=== PATIENT | female | born 1930 | race Caucasian/White ===

== ENCOUNTER → 2016-11-21 | Outpatient (CLI) | payer MEDICARE, BC ==
[2016-11-21 18:29] LABS: BASO % 0.3 % (0.0-1.0); EOS # 0.2 K/mm3 (0.0-0.50); EOS % 2.2 % (0.0-3.0); LARGE UNSTAINED CELL # 0.1 K/mm3 (0.0-0.4); LARGE UNSTAINED CELL % 1.3 % (0.0-4.0); LYMPH # 4.2 K/mm3 (1.5-4.5); LYMPH % 40.4 % (24.0-44.0); MEAN CORPUSCULAR HEMOGLOBIN 32.4 pg (27.0-33.0); MEAN CORPUSCULAR HGB CONC 33.1 g/dl (32.0-36.5); MEAN CORPUSCULAR VOLUME 97.9 fl (80.0-96.0); MONO # 0.4 K/mm3 (0.0-0.8); MONO % 4.3 % (0.0-5.0); NEUTROPHILS # 5.2 K/mm3 (1.8-7.7); NEUTROPHILS % 51.5 % (36.0-66.0); PLATELET COUNT, AUTOMATED 222 k/mm3 (150-450); RED CELL DISTRIBUTION WIDTH 12.4 % (11.5-14.5)
[2016-11-21 18:31] LABS: ALBUMIN 3.5 GM/DL (3.2-5.2); ALKALINE PHOSPHATASE 151 U/L (45-117); ALT/SGPT 52 U/L (12-78); ANION GAP 12 MEQ/L (8-16); AST/SGOT 53 U/L (15-37); BLOOD UREA NITROGEN 25 MG/DL (7-18); CALCIUM LEVEL 9.2 MG/DL (8.8-10.2); CARBON DIOXIDE LEVEL 28 MEQ/L (21-32); CHLORIDE LEVEL 102 MEQ/L (98-107); CHOLESTEROL LEVEL 199 MG/DL (<200); CREATININE FOR GFR 1.18 MG/DL (0.55-1.02); GLOMERULAR FILTRATION RATE 46.3 (>32); GLUCOSE, FASTING 279 MG/DL (83-110); POTASSIUM SERUM 4.6 MEQ/L (3.5-5.1); SODIUM LEVEL 142 MEQ/L (136-145); TRIGLYCERIDES LEVEL 291 MG/DL (<150)
[2016-11-21 18:35] LABS: BILIRUBIN,TOTAL 0.3 MG/DL (0.2-1.0)
== END ==
LOC: M SMT 11:42
PROVIDERS: ATTEND Family Medicine
DX: E11.42 Type 2 diabetes mellitus with diabetic polyneuropathy (principal); E07.89 Other specified disorders of thyroid

== ENCOUNTER 2016-12-20 12:46 | Emergency (ER) | payer MEDICARE, BC ==
[~2016-12-20] VITALS: Ht 160 cm; Wt 86.2 kg
[2016-12-20] MEDS ORDERED: NORC1TAB4 PO (13:11)
[2016-12-20] MEDS ORDERED: [UNRECOGNIZED DRUG - REMARK] (13:11)
[2016-12-20] MEDS ORDERED: GLIM2TAB PO (13:11)
[2016-12-20] MEDS ORDERED: OXYC-299 (13:11)
[2016-12-20] MEDS ORDERED: LORA2CON5 PO (13:11)
[2016-12-20] MEDS ORDERED: ASPI81TA85 PO (13:11)
[2016-12-20] MEDS ORDERED: XOPEAER INH (13:11)
[2016-12-20] MEDS ORDERED: DILT12SRCA PO (13:11)
[2016-12-20] MEDS ORDERED: LOSA50TA20 PO (13:11)
[2016-12-20] MEDS ORDERED: BIMA01SOL OU (13:11)
[2016-12-20] MEDS ORDERED: POTA10CA PO (13:11)
[2016-12-20] MEDS ORDERED: BETO0.25 OU (13:11)
[2016-12-20] MEDS ORDERED: JANU100T14 PO (13:11)
[2016-12-20] MEDS ORDERED: HYDR12.55 PO (13:11)
--- NOTE | 2016-12-20 14:06 | REP ---
PORTABLE CHEST: AP portable view of the chest was performed. There is no acute infiltrate or pulmonary edema. There is cardiomegaly. There is mild calcification and tortuosity of the thoracic aorta. Mediastinal silhouette otherwise appears unremarkable. There is mild elevation of the right hemidiaphragm. There are degenerative changes of the spine. There are degenerative changes of the shoulder with multiple calcific bodies along the humeral head. IMPRESSION: Cardiomegaly. No evidence of acute infiltrate or pulmonary edema. Signed by Michael Nash MD 12/20/2016 05:39 P
[2016-12-20 14:16] LABS: BASO % 0.5 % (0.0-1.0); EOS # 0.2 K/mm3 (0.0-0.50); EOS % 1.9 % (0.0-3.0); LARGE UNSTAINED CELL # 0.2 K/mm3 (0.0-0.4); LARGE UNSTAINED CELL % 1.7 % (0.0-4.0); LYMPH # 3.1 K/mm3 (1.5-4.5); LYMPH % 33.7 % (24.0-44.0); MEAN CORPUSCULAR HEMOGLOBIN 31.9 pg (27.0-33.0); MEAN CORPUSCULAR HGB CONC 32.8 g/dl (32.0-36.5); MEAN CORPUSCULAR VOLUME 97.3 fl (80.0-96.0); MONO # 0.3 K/mm3 (0.0-0.8); MONO % 3.7 % (0.0-5.0); NEUTROPHILS # 5.1 K/mm3 (1.8-7.7); NEUTROPHILS % 58.6 % (36.0-66.0); PLATELET COUNT, AUTOMATED 192 k/mm3 (150-450); RED CELL DISTRIBUTION WIDTH 12.6 % (11.5-14.5); WHITE BLOOD COUNT 8.7 K/mm3 (4.0-10.0)
[2016-12-20 15:09] LABS: ALBUMIN 3.1 GM/DL (3.2-5.2); ALBUMIN/GLOBULIN RATIO 0.82 (1.00-1.93); ALKALINE PHOSPHATASE 126 U/L (45-117); ALT/SGPT 49 U/L (12-78); ANION GAP 9 MEQ/L (8-16); AST/SGOT 46 U/L (15-37); BILIRUBIN,DIRECT < 0.1 MG/DL (0.0-0.2); BILIRUBIN,TOTAL 0.3 MG/DL (0.2-1.0); BLOOD UREA NITROGEN 21 MG/DL (7-18); CALCIUM LEVEL 9.3 MG/DL (8.8-10.2); CARBON DIOXIDE LEVEL 26 MEQ/L (21-32); CHLORIDE LEVEL 105 MEQ/L (98-107); CREATININE FOR GFR 1.04 MG/DL (0.55-1.02); GLOMERULAR FILTRATION RATE 53.6 (>32); GLUCOSE, FASTING 267 MG/DL (83-110); POTASSIUM SERUM 3.8 MEQ/L (3.5-5.1); SODIUM LEVEL 140 MEQ/L (136-145); TOTAL PROTEIN 6.9 GM/DL (6.4-8.2)
[2016-12-20] MEDS: cloNIDine 0.1 MG TAB PO ONE (16:28)
[2016-12-20] MEDS ORDERED: HYDR-3716 PO (17:06)
[2016-12-20] MEDS ORDERED: LORA-376 PO (17:06)
[2016-12-20] MEDS ORDERED: INSULANT SC (17:08)
[2016-12-20] MEDS ORDERED: PROB1CHW7 PO (17:08)
[2016-12-20] MEDS ORDERED: DULC5TAB PO (17:08)
[2016-12-20] MEDS ORDERED: COLA100C3 PO (17:08)
[2016-12-20] MEDS ORDERED: LOTE0.5S OU (17:08)
[2016-12-20] MEDS ORDERED: JANU100T PO (17:09)
[2016-12-20] MEDS: NORCO, ANEXSIA 5/325MG TABLET (HYDROcodone/ACETAMINOPHEN) PO ONE (17:48)
[2016-12-20] MEDS ORDERED: CLON-412 PO (18:52)
[2016-12-20 19:25] VITALS: BP 150/67
--- NOTE | 2016-12-22 20:39 | ECGEPIP ---
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
== END 2016-12-20 19:26 | disposition home or self-care (01) ==
LOC: M ED 16:11
DX: I16.0 Hypertensive urgency (principal); I25.10 Atherosclerotic heart disease of native coronary artery without angina pectoris; E11.9 Type 2 diabetes mellitus without complications; E78.5 Hyperlipidemia, unspecified; G47.33 Obstructive sleep apnea (adult) (pediatric); Z87.891 Personal history of nicotine dependence; Z88.0 Allergy status to penicillin; Z88.2 Allergy status to sulfonamides; Z88.1 Allergy status to other antibiotic agents; Z79.899 Other long term (current) drug therapy; Z79.82 Long term (current) use of aspirin; Z79.4 Long term (current) use of insulin; R06.02 Shortness of breath

== ENCOUNTER 2017-06-16 18:14 | Inpatient (IN) | payer MEDICARE, BC ==
[~2017-06-16] VITALS: Ht 154.9 cm; Wt 80.7 kg
[~2017-06-16 18:14] MED LIST: ASPI81TA85 PO; BETO0.25 OU; BIMA01SOL OU; CLON-412 PO; COLA100C5 PO; DILT12SRCA PO; DULC5TAB PO; GLIM2TAB PO; HYDR-3716 PO; HYDR12.55 PO; INSULANT SC; JANU100T PO; JANU100T14 PO; LEVAINH INH; LORA0.5T11 PO; LORA2CON5 PO; LOSA50TA20 PO; LOTE0.5S OU; NORC1TAB4 PO; OXYC-141; POTA10CA PO; PROB1CHW7 PO; [UNRECOGNIZED DRUG - REMARK]
[2017-06-16] MEDS ORDERED: ONDANSETRON 4MG/2ML VIAL (J2405) IV ONE (20:00)
[2017-06-16] MEDS ORDERED: MORPHINE 2 MG/ML 1ML SYRINGE IV PRN (20:00)
[2017-06-16 20:19] LABS: BASO # 0.1 10^3/uL (0.0-0.2); BASO % 0.5 % (0.0-1.0); EOS # 0.2 10^3/uL (0.0-0.50); EOS % 2.2 % (0.0-3.0); IMMATURE GRANULOCYTE % 0.2 % (0-0); LYMPH # 4.2 10^3/uL (1.5-4.5); LYMPH % 41.1 % (24.0-44.0); MEAN CORPUSCULAR HEMOGLOBIN 32.4 pg (27.0-33.0); MEAN CORPUSCULAR HGB CONC 33.3 g/dl (32.0-36.5); MEAN CORPUSCULAR VOLUME 97.2 fl (80.0-96.0); MONO # 0.7 10^3/uL (0.0-0.8); MONO % 6.4 % (0.0-5.0); NEUTROPHILS # 5.1 10^3/uL (1.8-7.7); NEUTROPHILS % 49.6 % (36.0-66.0); PLATELET COUNT, AUTOMATED 215 10^3/uL (150-450); RED CELL DISTRIBUTION WIDTH 12.5 % (11.5-14.5); WHITE BLOOD COUNT 10.2 10^3/uL (4.0-10.0)
[2017-06-16 20:52] LABS: ALBUMIN 3.1 GM/DL (3.2-5.2); ALBUMIN/GLOBULIN RATIO 0.86 (1.00-1.93); ALKALINE PHOSPHATASE 111 U/L (45-117); ALT/SGPT 48 U/L (12-78); ANION GAP 7 MEQ/L (8-16); AST/SGOT 43 U/L (15-37); BILIRUBIN,DIRECT < 0.1 MG/DL (0.0-0.2); BILIRUBIN,TOTAL 0.2 MG/DL (0.2-1.0); BLOOD UREA NITROGEN 24 MG/DL (7-18); CALCIUM LEVEL 9.1 MG/DL (8.8-10.2); CARBON DIOXIDE LEVEL 29 MEQ/L (21-32); CHLORIDE LEVEL 104 MEQ/L (98-107); CREATININE FOR GFR 1.23 MG/DL (0.55-1.02); GLOMERULAR FILTRATION RATE 44.2 (>32); GLUCOSE, FASTING 269 MG/DL (83-110); POTASSIUM SERUM 3.8 MEQ/L (3.5-5.1); SODIUM LEVEL 140 MEQ/L (136-145); TOTAL PROTEIN 6.7 GM/DL (6.4-8.2)
[2017-06-16] MEDS: LEVEMIR (INSULIN DETEMIR) 1 UNITS/0.01ML SC SCH (21:00)
[2017-06-16] MEDS: HumaLOG INSULIN (NovoLOG) PER UNIT SC SCH (21:00)
--- NOTE | 2017-06-16 21:10 | REPUSA ---
CT of the cervical spine Clinical history: Pain. Technique: Multiple axial CT images were obtained through the cervical spine without administration o f contrast. Coronal and sagittal 3-D reconstructed images were also obtained. Comparison: None. Findings: The cervical vertebral bodies are in satisfactory positioning and alignment. No fractures or dislocat ions are demonstrated. Large anterior osteophytes are seen at C5 and C6. The odontoid process is inta ct. Intervertebral disc spaces are moderately narrowed at all levels. This is most severe at C3/C4. F acet arthropathy with sclerosis and osteophytic changes are seen bilaterally. There is no evidence of facet subluxation. The cervical cranial junction is intact. The surrounding soft tissues are within normal limits. Impression: 1. No acute fracture or traumatic injury. 2. Moderate cervical spondylosis with multilevel degenerative disc disease and facet arthropathy as d escribed.
--- NOTE | 2017-06-16 21:30 | REPUSA ---
CT of the chest without contrast Clinical statement: Fall. Technique: Multiple axial CT images were obtained with 5 mm cuts through the chest without administra tion of contrast. Coronal and sagittal reconstructions were also obtained. No comparison is available. Findings: There is no thoracic lymphadenopathy. The visualized portions of the thyroid gland is unrem arkable. There are no pericardial or pleural effusions. The lungs are clear, other than some benign c alcified granulomas. Limited imaging of the upper abdomen does not demonstrate any acute abnormalitie s. There are no suspicious osseous lesions. Impression: No acute traumatic injury. No acute intrapulmonary disease.
--- NOTE | 2017-06-16 21:30 | REPUSA ---
CT of the head Clinical history: fall. Protocol: Multiple axial CT images obtained with 5 mm slice thickness were obtained through the head without administration of contrast. Findings: The ventricles and sulci are symmetric but prominent in size bilaterally. There are periven tricular areas of low attenuation throughout the deep white matter. There is no evidence of acute hem orrhage or infarct. There is no midline shift, mass effect, or extra-axial fluid collection. The osse ous structures are unremarkable. The visualized paranasal sinuses and mastoid air cells are clear. Impression: No acute hemorrhage or infarct. Findings are consistent with moderately severe age-relate d atrophy and chronic small vessel ischemic disease.
[2017-06-16] MEDS ORDERED: cloNIDine 0.1 MG TAB PO ONE (21:45)
[2017-06-16] MEDS ORDERED: hydrALAZINE INJ 20 MG/ML VIAL IV ONE (22:30)
[2017-06-16] MEDS ORDERED: CLON-412 PO (23:08)
[2017-06-16] MEDS ORDERED: LORA1TAB12 PO (23:08)
[2017-06-16] MEDS ORDERED: DULO1CAP2 PO (23:08)
[2017-06-16] MEDS ORDERED: BISACODYL 5 MG TAB PO PRN (23:15)
[2017-06-16] MEDS ORDERED: GLUCOSE 4 GM CHEW TABLET PO PRN (23:45)
[2017-06-16] MEDS ORDERED: DEXTROSE 50% 50 ML SYRINGE IV PRN (23:45)
[2017-06-16] MEDS ORDERED: GLUCAGON FOR INJ 1 MG VIAL (J1610) SC PRN (23:45)
[2017-06-17] VITALS (10 sets, daily range): BP systolic 141–190; BP diastolic 69–88; O2SAT 95–96
[2017-06-17] MEDS: ANEXSIA, NORCO 7.5MG/325MG TABLET(HYDROCODONE/APAP) PO PRN ×2 (00:19→22:03)
[2017-06-17 00:52] LABS: T UPTAKE 33 % (30-39); THYROXINE (T4) 10.3 UG/DL (4.5-12.0)
[2017-06-17] MEDS ORDERED: LEVALBUTEROL HFA 45MCG/ACT 15 GM INHALER INH PRN (01:00)
[2017-06-17] MEDS: SENOKOT S TAB PO SCH ×3 (02:31→21:59)
[2017-06-17 02:54] LABS: MAGNESIUM LEVEL 1.8 MG/DL (1.8-2.4)
[2017-06-17] MEDS ORDERED: ONDANSETRON 4MG/2ML VIAL (J2405) IV ONE (03:00)
--- NOTE | 2017-06-17 05:23 | HPE ---
DATE OF ADMISSION: 06/16/2017 PRIMARY CARE PROVIDER: Dr. Leone. CHIEF COMPLAINT: Fall. HISTORY OF PRESENT ILLNESS: This is an 86-year-old female patient with underlying medical history of diabetes, hypertension, asthma, cornea transplant, visual limitation, peripheral neuropathy, anxiety, frequent falls, chronic back pain, admitted status post fall around 6 p.m., when patient lost balance in the house getting from chair. Baseline ambulating with a cane or walker, but poorly compliant with using cane. Lives at home with . Has been falling multiple times, more than 15 times over the past month. After the fall, the patient reported some headache, neck pain, back pain, that is worse than before. Denies any chest pain, pressure, discomfort. Denies any loss of consciousness or shortness of breath. Has a history of ankle fracture with rods that, as per patient, has not healed due to lack of bone growth. Denies any fevers at home, coughing, diarrhea. Reported constipation. In the emergency department (ED), the patient was found to be hypertensive with a blood pressure in the 250s. ALLERGIES: 1. CEPHALOSPORIN. 2. PENICILLIN, PENICILLIN CROSS REACTORS. 3. SULFA, SULFA CROSS REACTORS. PAST MEDICAL HISTORY: 1. Hypertension. 2. Asthma. 3. Diabetes type 2. 4. Chronic back pain. PAST SURGICAL HISTORY: 1. History of corneal transplant. 2. Multiple sections up to eight sections. 3. Bilateral hip replacement. 4. Back surgery, cervical C3-C4 surgery. 5. Ankle surgery right ankle. SOCIAL HISTORY: Lives at home with , with daughter living close by. Denies smoking or alcohol use. FAMILY HISTORY: Noncontributory. REVIEW OF SYSTEMS: Reported frequent falls with generalized weakness, unsteadiness. Reported back pain, neck pain, headache. All other review of systems negative. HOME MEDICATIONS: - [place] 7.5/325 mg by mouth every eight hours as needed - Lumigan eye drops at bedtime - Dulcolax rectal suppository 5 mg daily as needed - clonidine 0.2 mg by mouth twice a day - diltiazem 120 mg by mouth daily - Colace 100 mg by mouth at bedtime - duloxetine 30 mg by mouth daily - glimepiride 2 mg by mouth daily - hydrochlorothiazide 12.5 mg by mouth daily - Lantus 55 units subcutaneous at bedtime - Xopenex two puffs inhalation four times a day as needed - lorazepam 1 mg by mouth three times a day as needed - losartan 50 mg by mouth daily - Lotemax ocular drop daily - potassium chloride 10 mEq by mouth daily - Januvia 100 mg by mouth daily PHYSICAL EXAMINATION: VITAL SIGNS: Temperature 97.5, pulse 90, respirations 18, blood pressure 182/65, pulse oximetry 95% on room air. GENERAL: Patient alert, comfortable in no acute distress. HEENT: Normocephalic, atraumatic. PULMONARY: Bilaterally clear to auscultation. HEART: Regular S1, S2. ABDOMEN: Soft, nontender. Obese. Positive bowel sounds. EXTREMITIES: No clubbing, cyanosis or edema. NEUROLOGIC: Cranial nerves II through XII grossly intact. Bilateral upper and lower extremities 5/5 symmetrical. [id number] intact. LABORATORY DATA: WBC 10.2, hemoglobin and hematocrit 12.6 over 37.6, platelets 215. Chemistry: Sodium 140, potassium 3.8, chloride 104, bicarbonate 29, BUN 24, creatinine 1.23. Cardiac enzymes negative times one. EKG: Sinus rhythm. T-wave inversion V1. Rate of 79. ASSESSMENT AND PLAN: This is an 86-year-old female patient with underlying medical history of hypertension, chronic kidney disease (CKD), type 2 diabetes, asthma, neuropathy, chronic back pain, admitted for frequent falls with hypertensive emergency. 1. Hypertensive emergency: Blood pressure much improved. Will monitor the patient in the progressive care unit (PCU). Followup cardiac enzymes, electrocardiogram (EKG), echocardiogram, renal ultrasound. Goal blood pressure over the next 24 hours 160-180 systolic to 90-100 diastolic. Continue home blood pressure medication. Patient given hydralazine in the emergency department (ED) with much improvement. Will give additional hydralazine doses as needed. Possible secondary to rebound hypertension due to clonidine. The patient is currently on clonidine, Cardizem, hydrochlorothiazide, losartan. If blood pressure persists, we will consider increasing either hydrochlorothiazide or losartan for better blood pressure control. 2. Frequent falls: Followup orthostatic vital signs, cardiac enzymes. MRI. CT scan appreciated. Physical therapy (PT), occupational therapy (OT), patient and family services (PFS), plus home services versus short-term rehabilitation. CT of the cervical spine is appreciated as well as CT of the chest and CT of the head, were all negative for fracture. Will followup x-ray of the right ankle for patient concerns, reported that previously the ankle has not been healing well. Will continue to follow. 3. Hypertension: Continue medications as discussed above. 4. History of asthma: Patient currently does not have any wheeze. Continue home medication. 5. Type 2 diabetes: Basal bolus insulin. Holding oral medication. Adjust as needed. 6. History of corneal transplant, glaucoma: Continue current medication. Patient has significant vision deficit. 7. Chronic kidney disease (CKD): Currently baseline continue to follow. 8. Chronic back pain with peripheral neuropathy: Supportive care. Continue current medication. 9. Deep venous thrombosis (DVT) prophylaxis: Will give the patient heparin subcutaneous. DISPOSITION: Pending further workup for frequent falls. Control blood pressure. Physical therapy. MTDD
[2017-06-17 05:44] LABS: MEAN CORPUSCULAR HEMOGLOBIN 32.3 pg (27.0-33.0); RED CELL DISTRIBUTION WIDTH 12.5 % (11.5-14.5); WHITE BLOOD COUNT 11.3 10^3/uL (4.0-10.0)
[2017-06-17 06:14] LABS: ALBUMIN 3.3 GM/DL (3.2-5.2); ALBUMIN/GLOBULIN RATIO 0.87 (1.00-1.93); ALKALINE PHOSPHATASE 101 U/L (45-117); ALT/SGPT 43 U/L (12-78); ANION GAP 7 MEQ/L (8-16); AST/SGOT 34 U/L (15-37); BILIRUBIN,TOTAL 0.4 MG/DL (0.2-1.0); BLOOD UREA NITROGEN 21 MG/DL (7-18); CALCIUM LEVEL 9.2 MG/DL (8.8-10.2); CARBON DIOXIDE LEVEL 29 MEQ/L (21-32); CHLORIDE LEVEL 102 MEQ/L (98-107); CREATININE FOR GFR 0.92 MG/DL (0.55-1.02); GLOMERULAR FILTRATION RATE > 60.0 (>32); GLUCOSE, FASTING 243 MG/DL (83-110); MAGNESIUM LEVEL 1.9 MG/DL (1.8-2.4); POTASSIUM SERUM 3.8 MEQ/L (3.5-5.1); SODIUM LEVEL 138 MEQ/L (136-145); TOTAL PROTEIN 7.1 GM/DL (6.4-8.2)
[2017-06-17] MEDS: LORazepam 1 MG TAB PO PRN ×2 (06:14→22:02)
--- NOTE | 2017-06-17 07:47 | REP ---
Right ankle four views: There are no comparisons. There is internal fixation of the distal tibia. I suspect there is synostosis of the distal fibula and tibia. The mortise is symmetric. There is no acute fracture or dislocation. Calcaneal plantar spurs are incidentally noted. Signed by Michael Peñaloza MD 06/17/2017 07:38 A
[2017-06-17] MEDS ORDERED: hydroCHLOROthiazide 12.5 MG CAPSULE PO SCH (09:00)
[2017-06-17] MEDS ORDERED: LOSARTAN 50 MG TAB PO SCH (09:00)
[2017-06-17] MEDS ORDERED: cloNIDine 0.1 MG TAB PO SCH ×2 (09:00)
--- NOTE | 2017-06-17 09:21 | ECGEPIP ---
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
--- NOTE | 2017-06-17 09:52 | REP ---
Urinary tract sonography and renal artery Doppler flow assessment: History: Hypertension, question renal artery stenosis. Morphologic findings: Scanning at the level of the urinary bladder shows no bladder wall or extra vesicle abnormality. Renal cortical echogenicity pattern is normal and renal contours are smooth on both sides. No mass cyst or hydronephrosis is seen. The right kidney measures 10.0 x 5.0 x 5.6 cm. Left renal dimensions are 10.2 x 5.1 x 5.0 cm. Renal artery Doppler assessment: Peak systolic flow velocity in the abdominal aorta at the level of the main renal arteries is normal at 78.4 cm/sec. Right main renal artery peak systolic flow velocity is 141.5 cm/sec and left main renal artery flow velocity is 30.4 cm/sec. This was recorded near the left renal hilus. The more proximal renal artery segments are obscured by bowel gas bilaterally. Renal to aortic flow velocity ratios are 1.8 on the right and 0.39 on the left. Resistive indices and acceleration times are measured in the upper, mid and lower pole intralobar arteries of each kidney and these values are normal bilaterally. Impression: 1. No morphologic abnormality seen. 2. Bowel gas limits visualization of the proximal most renal arteries bilaterally. There is no direct or indirect evidence to suggest renal artery stenosis however. Signed by Shane Stoll MD 06/17/2017 03:28 P
[2017-06-17] MEDS: HumaLOG INSULIN (NovoLOG) PER UNIT SC SCH ×4 (10:08→21:00)
[2017-06-17] MEDS: HEPARIN SOD (PORCINE) 5000 UNITS/ML VIAL SQ SCH ×2 (10:09→22:01)
[2017-06-17] MEDS: POTASSIUM CHLORIDE 10 MEQ SR TABLET PO SCH (10:10)
[2017-06-17] MEDS: DULoxetine 30 MG CAP (CYMBALTA) PO SCH (10:10)
--- NOTE | 2017-06-17 13:58 | IPNPDOC ---
Text Note Date of Service The patient was seen on 06/17/17. NOTE Subjective: Patient that she feels well. Denies any neurologic deficits. No slurred speech. No dysarthria. Objective: Vitals: (see below) General: No acute distress, laying comfortably in bed. HEENT: Moist mucous membranes. Neck: No JVD or lymphadenopathy. Full ROM. Cardiac: RRR, No murmurs Pulm: Clear to auscultation b/l. No wheezing, rhonchi Abd: NT/ND + BS Ext: No edema or cyanosis Neuro: Strength 5/5 BUE and BLE. CN 2-12 intact. 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 F to N intact Negative pronator drift. Negative Babinki. Labs (see below) Images: CT Head 06/16/17 Impression: No acute hemorrhage or infarct. Findings are consistent with moderately severe age-related atrophy and chronic small vessel ischemic disease. Renal u/s 06/16/17 Impression: 1. No morphologic abnormality seen. CT Cervical spine 06/16/17 Impression: 1. No acute fracture or traumatic injury. 2. Moderate cervical spondylosis with multilevel degenerative disc disease and facet arthropathy as described. CT Chest Impression: No acute traumatic injury. No acute intrapulmonary disease. Right ankle X ray Right ankle four views: There are no comparisons. There is internal fixation of the distal tibia. I suspect there is synostosis of the distal fibula and tibia. The mortise is symmetric. There is no acute fracture or dislocation. Calcaneal plantar spurs are incidentally noted. Assessment/Plan 1. Hypertensive urgency- patient states that's her blood pressure pills are similar to her aspirin and other vitamins, and she is confused as to which one she has been taking. She likely has rebound hypertension from clonidine. We will bring her blood pressure down slowly the next 24-48 hours. Discontinue ARB /HCTZ/diltiazem for now. 2. Frequent falls- questionable whether the patient has underlying CVA, especially in the setting of hypertensive urgency. Her initial CAT scan of the head was negative. Unable to obtain MRI given stent placed in the right eye. We 'll repeat her CAT scan of the head in the morning. Physical therapy/patient therapy. X-ray of the ankle negative for fracture. 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 Patient has full range of motion of her neck. No focal weakness. 3. History of asthma- stable continue meds 4. ABIs mellitus- we'll hold by mouth meds. Sliding scale insulin for now. 5. History of corneal transplant/glaucoma- continue eyedrops. 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 6. Chronic kidney disease stage III- creatinine improving. Avoid nephrotoxins. 7. Elevated troponin- patient denies chest pain. Likely secondary to hypertensive episode. Will need outpatient cardiology follow-up to rule out underlying ischemia. 8. Chronic back pain with peripheral neuropathy- continue home meds. DVT prophy: Heparin subcutaneous Prognosis guarded. VS,Fishbone, I+O VS, Fishbone, I+O Laboratory Tests 06/16/17 19:54 Red Blood Count 3.89 L, Mean Corpuscular Volume 97.2 H, Mean Corpuscular Hemoglobin 32.4, Mean Corpuscular Hemoglobin Concent 33.3, Red Cell Distribution Width 12.5, Neutrophils (%) (Auto) 49.6, Lymphocytes (%) (Auto) 41.1, Monocytes (%) (Auto) 6.4 H, Eosinophils (%) (Auto) 2.2, Basophils (%) ( Auto) 0.5, Neutrophils # (Auto) 5.1, Lymphocytes # (Auto) 4.2, Monocytes # (Auto ) 0.7, Eosinophils # (Auto) 0.2, Basophils # (Auto) 0.1 06/17/17 05:17 Red Blood Count 3.99 L, Mean Corpuscular Volume 95.0, Mean Corpuscular Hemoglobin 32.3, Mean Corpuscular Hemoglobin Concent 34.0, Red Cell Distribution Width 12.5, Calcium Level 9.2, Aspartate Amino Transf (AST/SGOT) 34 , Alanine Aminotransferase (ALT/SGPT) 43, Total Creatine Kinase 51, Alkaline Phosphatase 101, Total Bilirubin 0.4 #, Total Protein 7.1, Albumin 3.3 Vital Signs Date Time Temp Pulse Resp B/P (MAP) Pulse Ox O2 Delivery O2 Flow Rate FiO2 06/17/17 10:11 160/80 06/17/17 09:30 98.4 84 20 94 Room Air I&O- Last 24 Hours up to 6 AM 06/18/17 06:00 Intake Total 120 ml Output Total 300 ml Balance -180 ml SIMONE NARVAEZ MD Jun 17, 2017 13:58
--- NOTE | 2017-06-17 20:03 | ECHO ---
DATE OF PROCEDURE: 06/17/2017 REFERRING PHYSICIAN: Dr. Kingston Barrientos The study was performed on 06/17/2017 for indication syncope. The patient measures 155 cm and weighs 86 kg. DIMENSIONS: IVS: 1.4 LV: 3.0 LVPW: 1.4 LA: 2.5 Aorta: 2.5 FINDINGS: The study is of fair technical quality with difficult visualization. Left ventricle is of normal size and has hyperdynamic contractility. I estimate LVEF around 70-75%. Mild left ventricular hypertrophy is present. Right ventricle was poorly seen but grossly appears normal. Both atria appear grossly normal. Pericardial fat pad is noted. Aortic valve is mildly sclerotic but has preserved mobility. Mitral and tricuspid valve appear normal. Pulmonic valve was not well visualized. Inferior vena cava is of small caliber indicative of likely low central venous pressure. Aortic root is normal. Aortic arch was not well visualized. Abdominal aorta aches exhibits visible atherosclerosis. Doppler interrogation reveals no aortic stenosis or insufficiency. There is also no significant mitral and tricuspid valve disease. Mitral inflow pattern and tissue Doppler imaging of mitral annulus revealed grade 1 diastolic dysfunction. CONCLUSIONS: 1. The study is of fair technical quality. 2. Normal left ventricular (LV) size with mild left ventricular hypertrophy (LVH) and hyperdynamic LV systolic function. Grade 1 diastolic dysfunction. 3. No significant valvular disease. 4. Likely normal or low central venous pressure. 5. Unable to estimate pulmonary artery pressure. 6. Prominent pericardial fat pad under COMMENT: Subacute bacterial endocarditis (SBE) prophylaxis is not recommended. Study does not provide obvious explanation for syncopal event.
[2017-06-17] MEDS ORDERED: LEVEMIR (INSULIN DETEMIR) 1 UNITS/0.01ML SC SCH (21:00)
[2017-06-17] MEDS: DOCUSATE SODIUM 100 MG CAP PO SCH (21:58)
[2017-06-17] MEDS: LEVEMIR (INSULIN DETEMIR) 1 UNITS/0.01ML SC SCH (22:00)
[2017-06-17] MEDS: BETAXOLOL 0.25% OU SCH (22:01)
[2017-06-17] MEDS: LUMIGAN 0.01% OU SCH (22:02)
[2017-06-17] MEDS: OPTHALMIC OU SCH (22:02)
[2017-06-18 00:09] VITALS: BP 181/80
[2017-06-18 05:30] VITALS: BP 170/74
[2017-06-18 05:36] LABS: MEAN CORPUSCULAR HEMOGLOBIN 31.8 pg (27.0-33.0); MEAN CORPUSCULAR HGB CONC 33.4 g/dl (32.0-36.5); MEAN CORPUSCULAR VOLUME 95.2 fl (80.0-96.0); RED CELL DISTRIBUTION WIDTH 12.5 % (11.5-14.5); WHITE BLOOD COUNT 8.7 10^3/uL (4.0-10.0)
[2017-06-18 06:17] LABS: ALBUMIN/GLOBULIN RATIO 0.83 (1.00-1.93); ALKALINE PHOSPHATASE 91 U/L (45-117); ALT/SGPT 39 U/L (12-78); ANION GAP 7 MEQ/L (8-16); AST/SGOT 30 U/L (15-37); BILIRUBIN,TOTAL 0.4 MG/DL (0.2-1.0); BLOOD UREA NITROGEN 21 MG/DL (7-18); CALCIUM LEVEL 9.5 MG/DL (8.8-10.2); CARBON DIOXIDE LEVEL 30 MEQ/L (21-32); CHLORIDE LEVEL 103 MEQ/L (98-107); CREATININE FOR GFR 0.88 MG/DL (0.55-1.02); GLOMERULAR FILTRATION RATE > 60.0 (>32); GLUCOSE, FASTING 166 MG/DL (83-110); MAGNESIUM LEVEL 2.1 MG/DL (1.8-2.4); POTASSIUM SERUM 3.2 MEQ/L (3.5-5.1); SODIUM LEVEL 140 MEQ/L (136-145); TOTAL PROTEIN 6.6 GM/DL (6.4-8.2)
[2017-06-18] MEDS: HEPARIN SOD (PORCINE) 5000 UNITS/ML VIAL SQ SCH ×2 (08:35→20:47)
[2017-06-18] MEDS: HumaLOG INSULIN (NovoLOG) PER UNIT SC SCH ×4 (08:35→20:46)
[2017-06-18] MEDS: DULoxetine 30 MG CAP (CYMBALTA) PO SCH (08:36)
[2017-06-18] MEDS: SENOKOT S TAB PO SCH ×2 (08:36→20:46)
[2017-06-18] MEDS: POTASSIUM CHLORIDE 10 MEQ SR TABLET PO SCH (08:36)
[2017-06-18] MEDS: cloNIDine 0.1 MG TAB PO SCH (08:38)
[2017-06-18] MEDS: ANEXSIA, NORCO 7.5MG/325MG TABLET(HYDROCODONE/APAP) PO PRN ×2 (08:45→16:59)
[2017-06-18] MEDS ORDERED: OPTHALMIC OU SCH ×2 (09:00)
[2017-06-18] MEDS ORDERED: LOTEMAX OU SCH ×2 (09:00)
[2017-06-18] MEDS ORDERED: LOSARTAN 50 MG TAB PO SCH (09:00)
[2017-06-18] MEDS ORDERED: POTASSIUM CHLORIDE 10 MEQ SR TABLET PO ONE (09:00)
--- NOTE | 2017-06-18 10:12 | REP ---
CT Head without contrast HISTORY: Fall COMPARISON: 06/16/2017 Areas of decreased attenuation are present in the periventricular and subcortical white matter. This represents small-vessel ischemic disease. There is no intraparenchymal hemorrhage, acute infarct, mass or midline shift. The ventricular system and cortical sulci are dilated consistent with mild volume loss. There is no extra cerebral collection. There is no fracture. The visualized sinuses are clear. A band is present on the right globe. IMPRESSION: 1. Small vessel ischemic disease. 2. Mild volume loss. Signed by Henrique Junior MD 06/18/2017 10:03 A
[2017-06-18 12:00] VITALS: BP 160/65
--- NOTE | 2017-06-18 14:12 | IPNPDOC ---
Text Note Date of Service The patient was seen on 06/18/17. NOTE Subjective: Patient that she feels well. No new neurologic deficits. Objective: Vitals: (see below) General: No acute distress, laying comfortably in bed. HEENT: Moist mucous membranes. Neck: No JVD or lymphadenopathy. Full ROM. Cardiac: RRR, No murmurs Pulm: Clear to auscultation b/l. No wheezing, rhonchi Abd: NT/ND + BS Ext: No edema or cyanosis Neuro: Strength 5/5 BUE and BLE. CN 2-12 intact. 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 F to N intact Negative pronator drift. Negative Babinki. Labs (see below) Images: CT Head 06/16/17 Impression: No acute hemorrhage or infarct. Findings are consistent with moderately severe age-related atrophy and chronic small vessel ischemic disease. Renal u/s 06/16/17 Impression: 1. No morphologic abnormality seen. CT Cervical spine 06/16/17 Impression: 1. No acute fracture or traumatic injury. 2. Moderate cervical spondylosis with multilevel degenerative disc disease and facet arthropathy as described. CT Chest Impression: No acute traumatic injury. No acute intrapulmonary disease. Right ankle X ray Right ankle four views: There are no comparisons. There is internal fixation of the distal tibia. I suspect there is synostosis of the distal fibula and tibia. The mortise is symmetric. There is no acute fracture or dislocation. Calcaneal plantar spurs are incidentally noted. Assessment/Plan 1. Hypertensive urgency- patient states that's her blood pressure pills are similar to her aspirin and other vitamins, and she is confused as to which one she has been taking. She likely has rebound hypertension from clonidine. We will bring her blood pressure down slowly the next 24hours. Restart ARB. Off HCTZ/diltiazem for now. Plan to d/c clonidine all together prior to d/c. 2. Frequent falls- questionable whether the patient has underlying CVA, especially in the setting of hypertensive urgency. Her initial CAT scan of the head was negative. Unable to obtain MRI given stent placed in the right eye. We 'll repeat her CAT scan of the head in the morning. Physical therapy/patient therapy. X-ray of the ankle negative for fracture. 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 Patient has full range of motion of her neck. No focal weakness. 3. History of asthma- stable continue meds 4. Diabetes mellitus- we'll hold by mouth meds. Sliding scale insulin for now. 5. History of corneal transplant/glaucoma- continue eyedrops. 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 6. Chronic kidney disease stage III- creatinine improving. Avoid nephrotoxins. 7. Elevated troponin- patient denies chest pain. Likely secondary to hypertensive episode. Will need outpatient cardiology follow-up to rule out underlying ischemia. 8. Chronic back pain with peripheral neuropathy- continue home meds. DVT prophy: Heparin subcutaneous Prognosis guarded. VS,Fishbone, I+O VS, Fishbone, I+O Laboratory Tests 06/18/17 05:12 Red Blood Count 3.93 L, Mean Corpuscular Volume 95.2, Mean Corpuscular Hemoglobin 31.8, Mean Corpuscular Hemoglobin Concent 33.4, Red Cell Distribution Width 12.5, Calcium Level 9.5, Aspartate Amino Transf (AST/SGOT) 30 , Alanine Aminotransferase (ALT/SGPT) 39, Total Creatine Kinase 41, Alkaline Phosphatase 91, Total Bilirubin 0.4, Total Protein 6.6, Albumin 3.0 L Vital Signs Date Time Temp Pulse Resp B/P (MAP) Pulse Ox O2 Delivery O2 Flow Rate FiO2 06/18/17 12:09 Room Air 06/18/17 12:00 98.3 73 18 160/65 (96) 98 I&O- Last 24 Hours up to 6 AM 06/19/17 06:00 Intake Total 480 ml Output Total 400 ml Balance 80 ml SIMONE NARVAEZ MD Jun 18, 2017 14:12
[2017-06-18 16:00] VITALS: BP 162/71
[2017-06-18 20:00] VITALS: BP 164/84
[2017-06-18] MEDS: DOCUSATE SODIUM 100 MG CAP PO SCH (20:45)
[2017-06-18] MEDS: LEVEMIR (INSULIN DETEMIR) 1 UNITS/0.01ML SC SCH (20:46)
[2017-06-18] MEDS: BETAXOLOL 0.25% OU SCH (20:47)
[2017-06-18] MEDS: OPTHALMIC OU SCH (20:47)
[2017-06-18] MEDS: LUMIGAN 0.01% OU SCH (20:47)
[2017-06-19] VITALS: BP 150/86
[2017-06-19] MEDS: ANEXSIA, NORCO 7.5MG/325MG TABLET(HYDROCODONE/APAP) PO PRN ×2 (00:50→23:44)
[2017-06-19] MEDS: LORazepam 1 MG TAB PO PRN ×2 (00:50→20:29)
[2017-06-19 04:00] VITALS: BP 156/84
[2017-06-19 05:23] LABS: MEAN CORPUSCULAR HEMOGLOBIN 32.2 pg (27.0-33.0); MEAN CORPUSCULAR HGB CONC 33.4 g/dl (32.0-36.5); MEAN CORPUSCULAR VOLUME 96.2 fl (80.0-96.0); RED CELL DISTRIBUTION WIDTH 12.5 % (11.5-14.5); WHITE BLOOD COUNT 8.6 10^3/uL (4.0-10.0)
[2017-06-19 05:51] LABS: ALBUMIN/GLOBULIN RATIO 0.79 (1.00-1.93); ALKALINE PHOSPHATASE 100 U/L (45-117); ALT/SGPT 46 U/L (12-78); ANION GAP 8 MEQ/L (8-16); AST/SGOT 40 U/L (15-37); BILIRUBIN,TOTAL 0.3 MG/DL (0.2-1.0); BLOOD UREA NITROGEN 24 MG/DL (7-18); CALCIUM LEVEL 9.2 MG/DL (8.8-10.2); CARBON DIOXIDE LEVEL 28 MEQ/L (21-32); CHLORIDE LEVEL 106 MEQ/L (98-107); CREATININE FOR GFR 0.94 MG/DL (0.55-1.02); GLOMERULAR FILTRATION RATE > 60.0 (>32); GLUCOSE, FASTING 131 MG/DL (83-110); MAGNESIUM LEVEL 1.8 MG/DL (1.8-2.4); POTASSIUM SERUM 3.7 MEQ/L (3.5-5.1); SODIUM LEVEL 142 MEQ/L (136-145); TOTAL PROTEIN 6.8 GM/DL (6.4-8.2)
[2017-06-19 07:30] VITALS: BP 145/60
[2017-06-19] MEDS: HumaLOG INSULIN (NovoLOG) PER UNIT SC SCH ×4 (08:30→20:30)
[2017-06-19] MEDS: SENOKOT S TAB PO SCH ×2 (08:30→20:29)
[2017-06-19] MEDS: POTASSIUM CHLORIDE 10 MEQ SR TABLET PO SCH (08:31)
[2017-06-19] MEDS: DULoxetine 30 MG CAP (CYMBALTA) PO SCH (08:31)
[2017-06-19] MEDS: LOSARTAN 50 MG TAB PO SCH (08:31)
[2017-06-19] MEDS: cloNIDine 0.1 MG TAB PO SCH (08:32)
[2017-06-19] MEDS: HEPARIN SOD (PORCINE) 5000 UNITS/ML VIAL SQ SCH ×2 (08:32→20:32)
[2017-06-19 11:50] VITALS: BP 142/66
--- NOTE | 2017-06-19 14:51 | IPNPDOC ---
Text Note Date of Service The patient was seen on 06/19/17. NOTE Subjective: Patient that she feels well. Eating well and participating with PT. Objective: Vitals: (see below) General: No acute distress, laying comfortably in bed. HEENT: Moist mucous membranes. Neck: No JVD or lymphadenopathy. Full ROM. Cardiac: RRR, No murmurs Pulm: Clear to auscultation b/l. No wheezing, rhonchi Abd: NT/ND + BS Ext: No edema or cyanosis Neuro: Strength 5/5 BUE and BLE. CN 2-12 intact. 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 F to N intact Negative pronator drift. Negative Babinki. Labs (see below) Images: CT Head 06/16/17 Impression: No acute hemorrhage or infarct. Findings are consistent with moderately severe age-related atrophy and chronic small vessel ischemic disease. Renal u/s 06/16/17 Impression: 1. No morphologic abnormality seen. CT Cervical spine 06/16/17 Impression: 1. No acute fracture or traumatic injury. 2. Moderate cervical spondylosis with multilevel degenerative disc disease and facet arthropathy as described. CT Chest Impression: No acute traumatic injury. No acute intrapulmonary disease. Right ankle X ray Right ankle four views: There are no comparisons. There is internal fixation of the distal tibia. I suspect there is synostosis of the distal fibula and tibia. The mortise is symmetric. There is no acute fracture or dislocation. Calcaneal plantar spurs are incidentally noted. Assessment/Plan 1. Hypertensive urgency- patient states that's her blood pressure pills are similar to her aspirin and other vitamins, and she is confused as to which one she has been taking. She likely has rebound hypertension from clonidine. We will bring her blood pressure down slowly the next 24hours. Restart ARB. Off HCTZ/diltiazem for now. Plan to d/c clonidine all together prior to d/c. 2. Frequent falls- questionable whether the patient has underlying CVA, especially in the setting of hypertensive urgency. Her initial CAT scan of the head was negative. Unable to obtain MRI given stent placed in the right eye. We 'll repeat her CAT scan of the head in the morning. Physical therapy/patient therapy. X-ray of the ankle negative for fracture. 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 Patient has full range of motion of her neck. No focal weakness. 3. History of asthma- stable continue meds 4. Diabetes mellitus- we'll hold by mouth meds. Sliding scale insulin for now. 5. History of corneal transplant/glaucoma- continue eyedrops. 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 6. Chronic kidney disease stage III- creatinine improving. Avoid nephrotoxins. 7. Elevated troponin- patient denies chest pain. Likely secondary to hypertensive episode. Will need outpatient cardiology follow-up to rule out underlying ischemia. 8. Chronic back pain with peripheral neuropathy- continue home meds. DVT prophy: Heparin subcutaneous Prognosis guarded.. Physical therapy recommending subacute rehabilitation. VS,Fishbone, I+O VS, Fishbone, I+O Laboratory Tests 06/19/17 05:04 Red Blood Count 3.95 L, Mean Corpuscular Volume 96.2 H, Mean Corpuscular Hemoglobin 32.2, Mean Corpuscular Hemoglobin Concent 33.4, Red Cell Distribution Width 12.5, Calcium Level 9.2, Aspartate Amino Transf (AST/SGOT) 40 H, Alanine Aminotransferase (ALT/SGPT) 46, Total Creatine Kinase 34, Alkaline Phosphatase 100, Total Bilirubin 0.3, Total Protein 6.8, Albumin 3.0 L Vital Signs Date Time Temp Pulse Resp B/P (MAP) Pulse Ox O2 Delivery O2 Flow Rate FiO2 06/19/17 12:00 Room Air 06/19/17 11:50 98.0 94 20 142/66 (91) 95 I&O- Last 24 Hours up to 6 AM 06/20/17 06:00 Output Total 200 ml Balance -200 ml SIMONE NARVAEZ MD Jun 19, 2017 14:51
[2017-06-19 16:00] VITALS: BP 139/67
[2017-06-19 20:00] VITALS: BP 146/72
[2017-06-19] MEDS: DOCUSATE SODIUM 100 MG CAP PO SCH (20:29)
[2017-06-19] MEDS: LEVEMIR (INSULIN DETEMIR) 1 UNITS/0.01ML SC SCH (20:31)
[2017-06-19] MEDS: BETAXOLOL 0.25% OU SCH (20:31)
[2017-06-19] MEDS: OPTHALMIC OU SCH (20:31)
[2017-06-19] MEDS: LUMIGAN 0.01% OU SCH (20:31)
[2017-06-20] VITALS: BP 156/84
[2017-06-20] MEDS ORDERED: SLF 3 ML SYR IV PRN (03:45)
[2017-06-20 04:00] VITALS: BP 172/82
[2017-06-20] MEDS: SLF 3 ML SYR IV SCH ×3 (06:00→21:49)
[2017-06-20 06:03] LABS: MEAN CORPUSCULAR HEMOGLOBIN 32.2 pg (27.0-33.0); MEAN CORPUSCULAR HGB CONC 33.4 g/dl (32.0-36.5); MEAN CORPUSCULAR VOLUME 96.3 fl (80.0-96.0); RED CELL DISTRIBUTION WIDTH 12.5 % (11.5-14.5); WHITE BLOOD COUNT 14.3 10^3/uL (4.0-10.0)
[2017-06-20 06:07] LABS: ALBUMIN 3.2 GM/DL (3.2-5.2); ALBUMIN/GLOBULIN RATIO 0.91 (1.00-1.93); ALKALINE PHOSPHATASE 122 U/L (45-117); ALT/SGPT 50 U/L (12-78); ANION GAP 12 MEQ/L (8-16); AST/SGOT 36 U/L (15-37); BILIRUBIN,TOTAL 0.4 MG/DL (0.2-1.0); BLOOD UREA NITROGEN 24 MG/DL (7-18); CALCIUM LEVEL 9.2 MG/DL (8.8-10.2); CARBON DIOXIDE LEVEL 24 MEQ/L (21-32); CHLORIDE LEVEL 106 MEQ/L (98-107); CREATININE FOR GFR 0.93 MG/DL (0.55-1.02); GLOMERULAR FILTRATION RATE > 60.0 (>32); GLUCOSE, FASTING 163 MG/DL (83-110); MAGNESIUM LEVEL 1.9 MG/DL (1.8-2.4); POTASSIUM SERUM 3.9 MEQ/L (3.5-5.1); SODIUM LEVEL 142 MEQ/L (136-145); TOTAL PROTEIN 6.7 GM/DL (6.4-8.2)
[2017-06-20 08:00] VITALS: BP 160/56
[2017-06-20] MEDS: HEPARIN SOD (PORCINE) 5000 UNITS/ML VIAL SQ SCH ×2 (08:54→21:47)
[2017-06-20] MEDS: HumaLOG INSULIN (NovoLOG) PER UNIT SC SCH ×4 (08:54→21:00)
[2017-06-20] MEDS: POTASSIUM CHLORIDE 10 MEQ SR TABLET PO SCH (08:55)
[2017-06-20] MEDS: DULoxetine 30 MG CAP (CYMBALTA) PO SCH (08:55)
[2017-06-20] MEDS: LOSARTAN 50 MG TAB PO SCH (08:55)
[2017-06-20] MEDS: SENOKOT S TAB PO SCH ×2 (08:56→21:47)
[2017-06-20] MEDS: ANEXSIA, NORCO 7.5MG/325MG TABLET(HYDROCODONE/APAP) PO PRN ×2 (08:57→21:51)
[2017-06-20 11:47] VITALS: BP 156/72
--- NOTE | 2017-06-20 15:37 | IPNPDOC ---
Text Note Date of Service The patient was seen on 06/20/17. NOTE Subjective: Patient denies any acute changes overnight. No CP/sob/palpitations. Objective: Vitals: (see below) General: No acute distress, laying comfortably in bed. HEENT: Moist mucous membranes. Neck: No JVD or lymphadenopathy. Full ROM. Cardiac: RRR, No murmurs Pulm: Clear to auscultation b/l. No wheezing, rhonchi Abd: NT/ND + BS Ext: No edema or cyanosis Neuro: Strength 5/5 BUE and BLE. CN 2-12 intact. 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 F to N intact Negative pronator drift. Negative Babinki. Labs (see below) Images: CT Head 06/16/17 Impression: No acute hemorrhage or infarct. Findings are consistent with moderately severe age-related atrophy and chronic small vessel ischemic disease. Renal u/s 06/16/17 Impression: 1. No morphologic abnormality seen. CT Cervical spine 06/16/17 Impression: 1. No acute fracture or traumatic injury. 2. Moderate cervical spondylosis with multilevel degenerative disc disease and facet arthropathy as described. CT Chest Impression: No acute traumatic injury. No acute intrapulmonary disease. Right ankle X ray Right ankle four views: There are no comparisons. There is internal fixation of the distal tibia. I suspect there is synostosis of the distal fibula and tibia. The mortise is symmetric. There is no acute fracture or dislocation. Calcaneal plantar spurs are incidentally noted. Assessment/Plan 1. Hypertensive urgency- patient states that's her blood pressure pills are similar to her aspirin and other vitamins, and she is confused as to which one she has been taking. She likely has rebound hypertension from clonidine. We will bring her blood pressure down slowly the next 24hours. Restart ARB. Off HCTZ/diltiazem for now. D/c clonidine Start amlodipine. 2. Frequent falls- questionable whether the patient has underlying CVA, especially in the setting of hypertensive urgency. Her initial CAT scan of the head was negative. Unable to obtain MRI given stent placed in the right eye. We 'll repeat her CAT scan of the head in the morning. Physical therapy/patient therapy. X-ray of the ankle negative for fracture. 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 Patient has full range of motion of her neck. No focal weakness. 3. History of asthma- stable continue meds 4. Diabetes mellitus- we'll hold by mouth meds. Sliding scale insulin for now. 5. History of corneal transplant/glaucoma- continue eyedrops. 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 6. Chronic kidney disease stage III- creatinine improving. Avoid nephrotoxins. 7. Elevated troponin- patient denies chest pain. Likely secondary to hypertensive episode. Will need outpatient cardiology follow-up to rule out underlying ischemia. 8. Chronic back pain with peripheral neuropathy- continue home meds. DVT prophy: Heparin subcutaneous Prognosis guarded.. Physical therapy recommending subacute rehabilitation; awaiting placement. VS,Fishbone, I+O VS, Fishbone, I+O Laboratory Tests 06/20/17 05:29 Red Blood Count 4.07, Mean Corpuscular Volume 96.3 H, Mean Corpuscular Hemoglobin 32.2, Mean Corpuscular Hemoglobin Concent 33.4, Red Cell Distribution Width 12.5, Calcium Level 9.2, Aspartate Amino Transf (AST/SGOT) 36 , Alanine Aminotransferase (ALT/SGPT) 50, Alkaline Phosphatase 122 H, Total Bilirubin 0.4, Total Protein 6.7, Albumin 3.2 Vital Signs Date Time Temp Pulse Resp B/P (MAP) Pulse Ox O2 Delivery O2 Flow Rate FiO2 06/20/17 11:47 97.0 82 18 156/72 (100) 98 Room Air I&O- Last 24 Hours up to 6 AM 06/21/17 06:00 Intake Total 560 ml Output Total 300 ml Balance 260 ml SIMONE NARVAEZ MD Jun 20, 2017 15:37
[2017-06-20 16:00] VITALS: BP 150/68
[2017-06-20] MEDS: DOCUSATE SODIUM 100 MG CAP PO SCH (21:47)
[2017-06-20] MEDS: LEVEMIR (INSULIN DETEMIR) 1 UNITS/0.01ML SC SCH (21:47)
[2017-06-20] MEDS: CLOTRIMAZOLE 1% VAG CR 45 GM TOP SCH (21:49)
[2017-06-20] MEDS: BETAXOLOL 0.25% OU SCH (21:49)
[2017-06-20] MEDS: LUMIGAN 0.01% OU SCH (21:50)
[2017-06-20] MEDS: OPTHALMIC OU SCH (21:50)
[2017-06-20 22:00] VITALS: BP 142/79
[2017-06-21] MEDS: ONDANSETRON 4MG/2ML VIAL (J2405) IV PRN (04:18)
[2017-06-21 06:00] VITALS: BP 192/88
[2017-06-21] MEDS: SLF 3 ML SYR IV SCH ×3 (06:03→21:38)
[2017-06-21 06:06] LABS: MEAN CORPUSCULAR HEMOGLOBIN 32.2 pg (27.0-33.0); MEAN CORPUSCULAR HGB CONC 33.6 g/dl (32.0-36.5); MEAN CORPUSCULAR VOLUME 95.7 fl (80.0-96.0); RED CELL DISTRIBUTION WIDTH 12.4 % (11.5-14.5); WHITE BLOOD COUNT 7.3 10^3/uL (4.0-10.0)
[2017-06-21 06:30] VITALS: BP 142/80
[2017-06-21 06:37] LABS: ALBUMIN 2.9 GM/DL (3.2-5.2); ALBUMIN/GLOBULIN RATIO 0.74 (1.00-1.93); ALKALINE PHOSPHATASE 111 U/L (45-117); ALT/SGPT 41 U/L (12-78); ANION GAP 9 MEQ/L (8-16); AST/SGOT 29 U/L (15-37); BILIRUBIN,TOTAL 0.3 MG/DL (0.2-1.0); BLOOD UREA NITROGEN 23 MG/DL (7-18); CALCIUM LEVEL 8.8 MG/DL (8.8-10.2); CARBON DIOXIDE LEVEL 27 MEQ/L (21-32); CHLORIDE LEVEL 105 MEQ/L (98-107); CREATININE FOR GFR 0.83 MG/DL (0.55-1.02); GLOMERULAR FILTRATION RATE > 60.0 (>32); GLUCOSE, FASTING 167 MG/DL (83-110); MAGNESIUM LEVEL 1.9 MG/DL (1.8-2.4); POTASSIUM SERUM 3.4 MEQ/L (3.5-5.1); SODIUM LEVEL 141 MEQ/L (136-145); TOTAL PROTEIN 6.8 GM/DL (6.4-8.2)
[2017-06-21] MEDS ORDERED: POTASSIUM CHLORIDE 10 MEQ SR TABLET PO ONE (08:00)
[2017-06-21] MEDS: HEPARIN SOD (PORCINE) 5000 UNITS/ML VIAL SQ SCH ×2 (09:41→21:35)
[2017-06-21] MEDS: HumaLOG INSULIN (NovoLOG) PER UNIT SC SCH ×4 (09:43→21:00)
[2017-06-21] MEDS: DULoxetine 30 MG CAP (CYMBALTA) PO SCH (09:43)
[2017-06-21] MEDS: SENOKOT S TAB PO SCH ×2 (09:44→21:34)
[2017-06-21] MEDS: LOSARTAN 50 MG TAB PO SCH (09:47)
[2017-06-21] MEDS: CLOTRIMAZOLE 1% VAG CR 45 GM TOP SCH ×2 (09:48→21:38)
[2017-06-21] MEDS: ANEXSIA, NORCO 7.5MG/325MG TABLET(HYDROCODONE/APAP) PO PRN ×2 (10:04→22:25)
[2017-06-21] MEDS: POTASSIUM CHLORIDE 10 MEQ SR TABLET PO SCH (10:51)
[2017-06-21 14:00] VITALS: BP 170/90
[2017-06-21 18:25] VITALS: BP 150/84
[2017-06-21] MEDS: LUMIGAN 0.01% OU SCH (21:00)
[2017-06-21] MEDS: LEVEMIR (INSULIN DETEMIR) 1 UNITS/0.01ML SC SCH (21:00)
[2017-06-21] MEDS: BETAXOLOL 0.25% OU SCH (21:00)
[2017-06-21] MEDS: OPTHALMIC OU SCH (21:00)
[2017-06-21] MEDS: DOCUSATE SODIUM 100 MG CAP PO SCH (21:34)
[2017-06-21 22:00] VITALS: BP 164/76
[2017-06-22] MEDS: SLF 3 ML SYR IV SCH ×3 (05:52→21:59)
[2017-06-22 06:00] VITALS: BP 145/70
[2017-06-22 06:18] LABS: MEAN CORPUSCULAR HEMOGLOBIN 31.9 pg (27.0-33.0); MEAN CORPUSCULAR HGB CONC 33.2 g/dl (32.0-36.5); MEAN CORPUSCULAR VOLUME 96.3 fl (80.0-96.0); RED CELL DISTRIBUTION WIDTH 12.5 % (11.5-14.5); WHITE BLOOD COUNT 7.7 10^3/uL (4.0-10.0)
[2017-06-22 06:43] LABS: ALBUMIN 2.9 GM/DL (3.2-5.2); ALBUMIN/GLOBULIN RATIO 0.71 (1.00-1.93); ALKALINE PHOSPHATASE 122 U/L (45-117); ALT/SGPT 50 U/L (12-78); ANION GAP 5 MEQ/L (8-16); AST/SGOT 40 U/L (15-37); BILIRUBIN,TOTAL 0.4 MG/DL (0.2-1.0); BLOOD UREA NITROGEN 18 MG/DL (7-18); CALCIUM LEVEL 9.5 MG/DL (8.8-10.2); CARBON DIOXIDE LEVEL 29 MEQ/L (21-32); CHLORIDE LEVEL 106 MEQ/L (98-107); CREATININE FOR GFR 0.82 MG/DL (0.55-1.02); GLOMERULAR FILTRATION RATE > 60.0 (>32); GLUCOSE, FASTING 164 MG/DL (83-110); MAGNESIUM LEVEL 1.8 MG/DL (1.8-2.4); POTASSIUM SERUM 3.8 MEQ/L (3.5-5.1); SODIUM LEVEL 140 MEQ/L (136-145)
[2017-06-22] MEDS: HumaLOG INSULIN (NovoLOG) PER UNIT SC SCH ×4 (08:31→21:00)
[2017-06-22] MEDS: SENOKOT S TAB PO SCH ×2 (08:35→21:55)
[2017-06-22] MEDS: POTASSIUM CHLORIDE 10 MEQ SR TABLET PO SCH (08:35)
[2017-06-22] MEDS: LOSARTAN 50 MG TAB PO SCH (08:35)
[2017-06-22] MEDS: DULoxetine 30 MG CAP (CYMBALTA) PO SCH (08:35)
[2017-06-22] MEDS: amLODIPine 10 MG TAB PO SCH (08:36)
[2017-06-22] MEDS: HEPARIN SOD (PORCINE) 5000 UNITS/ML VIAL SQ SCH ×2 (08:37→21:57)
[2017-06-22] MEDS: CLOTRIMAZOLE 1% VAG CR 45 GM TOP SCH ×2 (08:38→21:00)
--- NOTE | 2017-06-22 09:58 | IPNPDOC ---
Text Note Date of Service The patient was seen on 06/22/17. NOTE Subjective: No changes overnight. Awaiting rehab placement. Objective: Vitals: (see below) General: No acute distress, laying comfortably in bed. HEENT: Moist mucous membranes. Neck: No JVD or lymphadenopathy. Full ROM. Cardiac: RRR, No murmurs Pulm: Clear to auscultation b/l. No wheezing, rhonchi Abd: NT/ND + BS Ext: No edema or cyanosis Neuro: Strength 5/5 BUE and BLE. CN 2-12 intact. 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 F to N intact Negative pronator drift. Negative Babinki. Labs (see below) Images: CT Head 06/16/17 Impression: No acute hemorrhage or infarct. Findings are consistent with moderately severe age-related atrophy and chronic small vessel ischemic disease. Renal u/s 06/16/17 Impression: 1. No morphologic abnormality seen. CT Cervical spine 06/16/17 Impression: 1. No acute fracture or traumatic injury. 2. Moderate cervical spondylosis with multilevel degenerative disc disease and facet arthropathy as described. CT Chest Impression: No acute traumatic injury. No acute intrapulmonary disease. Right ankle X ray Right ankle four views: There are no comparisons. There is internal fixation of the distal tibia. I suspect there is synostosis of the distal fibula and tibia. The mortise is symmetric. There is no acute fracture or dislocation. Calcaneal plantar spurs are incidentally noted. Assessment/Plan 1. Hypertensive urgency- patient states that's her blood pressure pills are similar to her aspirin and other vitamins, and she is confused as to which one she has been taking. She likely has rebound hypertension from clonidine. We will bring her blood pressure down slowly the next 24hours. Restart ARB. Off HCTZ/diltiazem for now. D/c clonidine Start amlodipine. 2. Frequent falls- questionable whether the patient has underlying CVA, especially in the setting of hypertensive urgency. Her initial CAT scan of the head was negative. Unable to obtain MRI given stent placed in the right eye. We 'll repeat her CAT scan of the head in the morning. Physical therapy/patient therapy. X-ray of the ankle negative for fracture. 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 Patient has full range of motion of her neck. No focal weakness. 3. History of asthma- stable continue meds 4. Diabetes mellitus- we'll hold by mouth meds. Sliding scale insulin for now. 5. History of corneal transplant/glaucoma- continue eyedrops. 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 6. Chronic kidney disease stage III- creatinine improving. Avoid nephrotoxins. 7. Elevated troponin- patient denies chest pain. Likely secondary to hypertensive episode. Will need outpatient cardiology follow-up to rule out underlying ischemia. 8. Chronic back pain with peripheral neuropathy- continue home meds. DVT prophy: Heparin subcutaneous Prognosis guarded.. Physical therapy recommending subacute rehabilitation; awaiting placement. VS,Fishbone, I+O VS, Fishbone, I+O Laboratory Tests 06/22/17 05:52 Red Blood Count 4.04, Mean Corpuscular Volume 96.3 H, Mean Corpuscular Hemoglobin 31.9, Mean Corpuscular Hemoglobin Concent 33.2, Red Cell Distribution Width 12.5, Calcium Level 9.5, Aspartate Amino Transf (AST/SGOT) 40 H, Alanine Aminotransferase (ALT/SGPT) 50, Alkaline Phosphatase 122 H, Total Bilirubin 0.4, Total Protein 7.0, Albumin 2.9 L Vital Signs Date Time Temp Pulse Resp B/P (MAP) Pulse Ox O2 Delivery O2 Flow Rate FiO2 06/22/17 08:36 82 164/60 06/22/17 06:00 98.5 18 95 Room Air I&O- Last 24 Hours up to 6 AM 06/23/17 06:00 Intake Total 0 ml Balance 0 ml SIMONE NARVAEZ MD Jun 22, 2017 09:58
[2017-06-22] MEDS: LEVEMIR (INSULIN DETEMIR) 1 UNITS/0.01ML SC SCH ×2 (12:11→21:00)
[2017-06-22] MEDS: prednisoLONE ACET 1% OPHTH SUSP 5ML OU SCH ×2 (12:11→21:00)
[2017-06-22] MEDS: ANEXSIA, NORCO 7.5MG/325MG TABLET(HYDROCODONE/APAP) PO PRN (13:52)
[2017-06-22 14:00] VITALS: BP 150/78
[2017-06-22] MEDS: BETAXOLOL 0.25% OU SCH (21:00)
[2017-06-22] MEDS: LUMIGAN 0.01% OU SCH (21:00)
[2017-06-22] MEDS: OPTHALMIC OU SCH (21:00)
[2017-06-22] MEDS: DOCUSATE SODIUM 100 MG CAP PO SCH (21:56)
[2017-06-22 22:00] VITALS: BP 146/74
[2017-06-23] MEDS: ONDANSETRON 4MG/2ML VIAL (J2405) IV PRN (02:17)
[2017-06-23] MEDS: ANEXSIA, NORCO 7.5MG/325MG TABLET(HYDROCODONE/APAP) PO PRN ×2 (03:20→21:32)
[2017-06-23] MEDS: SLF 3 ML SYR IV SCH ×3 (06:00→21:55)
[2017-06-23 06:24] LABS: MEAN CORPUSCULAR HEMOGLOBIN 31.7 pg (27.0-33.0); MEAN CORPUSCULAR HGB CONC 33.1 g/dl (32.0-36.5); MEAN CORPUSCULAR VOLUME 95.9 fl (80.0-96.0); RED CELL DISTRIBUTION WIDTH 12.3 % (11.5-14.5); WHITE BLOOD COUNT 9.4 10^3/uL (4.0-10.0)
[2017-06-23 06:48] LABS: ALBUMIN 2.9 GM/DL (3.2-5.2); ALBUMIN/GLOBULIN RATIO 0.74 (1.00-1.93); ALKALINE PHOSPHATASE 121 U/L (45-117); ALT/SGPT 53 U/L (12-78); ANION GAP 8 MEQ/L (8-16); AST/SGOT 39 U/L (15-37); BILIRUBIN,TOTAL 0.3 MG/DL (0.2-1.0); BLOOD UREA NITROGEN 18 MG/DL (7-18); CALCIUM LEVEL 9.3 MG/DL (8.8-10.2); CARBON DIOXIDE LEVEL 27 MEQ/L (21-32); CHLORIDE LEVEL 103 MEQ/L (98-107); CREATININE FOR GFR 0.88 MG/DL (0.55-1.02); GLOMERULAR FILTRATION RATE > 60.0 (>32); GLUCOSE, FASTING 225 MG/DL (83-110); MAGNESIUM LEVEL 1.8 MG/DL (1.8-2.4); SODIUM LEVEL 138 MEQ/L (136-145); TOTAL PROTEIN 6.8 GM/DL (6.4-8.2)
[2017-06-23] MEDS: HumaLOG INSULIN (NovoLOG) PER UNIT SC SCH ×4 (07:30→21:31)
[2017-06-23 08:01] VITALS: BP 152/76
[2017-06-23] MEDS: prednisoLONE ACET 1% OPHTH SUSP 5ML OU SCH ×2 (09:00→21:00)
[2017-06-23] MEDS: LEVEMIR (INSULIN DETEMIR) 1 UNITS/0.01ML SC SCH ×2 (09:00→21:31)
[2017-06-23] MEDS: POTASSIUM CHLORIDE 10 MEQ SR TABLET PO SCH (09:26)
[2017-06-23] MEDS: amLODIPine 10 MG TAB PO SCH (09:26)
[2017-06-23 09:27] VITALS: BP 152/76
[2017-06-23] MEDS: SENOKOT S TAB PO SCH ×2 (09:27→21:32)
[2017-06-23] MEDS: DULoxetine 30 MG CAP (CYMBALTA) PO SCH (09:27)
[2017-06-23] MEDS: LOSARTAN 50 MG TAB PO SCH (09:27)
[2017-06-23] MEDS: HEPARIN SOD (PORCINE) 5000 UNITS/ML VIAL SQ SCH ×2 (09:28→21:33)
[2017-06-23] MEDS: CLOTRIMAZOLE 1% VAG CR 45 GM TOP SCH ×2 (09:29→21:35)
[2017-06-23] MEDS ORDERED: BISACODYL 10 MG SUPP PR ONE (11:30)
--- NOTE | 2017-06-23 12:06 | IPNPDOC ---
Text Note Date of Service The patient was seen on 06/23/17. NOTE Subjective: No changes overnight. Awaiting rehab placement. Objective: Vitals: (see below) General: No acute distress, laying comfortably in bed. HEENT: Moist mucous membranes. Neck: No JVD or lymphadenopathy. Full ROM. Cardiac: RRR, No murmurs Pulm: Clear to auscultation b/l. No wheezing, rhonchi Abd: NT/ND + BS Ext: No edema or cyanosis Neuro: Strength 5/5 BUE and BLE. CN 2-12 intact. 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 F to N intact Negative pronator drift. Negative Babinki. Labs (see below) Images: CT Head 06/16/17 Impression: No acute hemorrhage or infarct. Findings are consistent with moderately severe age-related atrophy and chronic small vessel ischemic disease. Renal u/s 06/16/17 Impression: 1. No morphologic abnormality seen. CT Cervical spine 06/16/17 Impression: 1. No acute fracture or traumatic injury. 2. Moderate cervical spondylosis with multilevel degenerative disc disease and facet arthropathy as described. CT Chest Impression: No acute traumatic injury. No acute intrapulmonary disease. Right ankle X ray Right ankle four views: There are no comparisons. There is internal fixation of the distal tibia. I suspect there is synostosis of the distal fibula and tibia. The mortise is symmetric. There is no acute fracture or dislocation. Calcaneal plantar spurs are incidentally noted. Assessment/Plan 1. S/p Hypertensive urgency- patient states that's her blood pressure pills are similar to her aspirin and other vitamins, and she is confused as to which one she has been taking. She likely has rebound hypertension from clonidine. We will bring her blood pressure down slowly the next 24hours. Restart ARB. Off HCTZ/diltiazem for now. D/c clonidine Start amlodipine. 2. Frequent falls- questionable whether the patient has underlying CVA, especially in the setting of hypertensive urgency. Her initial CAT scan of the head was negative. Unable to obtain MRI given stent placed in the right eye. We 'll repeat her CAT scan of the head in the morning. Physical therapy/patient therapy. X-ray of the ankle negative for fracture. 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 Patient has full range of motion of her neck. No focal weakness. 3. History of asthma- stable continue meds 4. Diabetes mellitus- we'll hold by mouth meds. Sliding scale insulin for now. 5. History of corneal transplant/glaucoma- continue eyedrops. 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 6. Chronic kidney disease stage III- creatinine improving. Avoid nephrotoxins. 7. Elevated troponin- patient denies chest pain. Likely secondary to hypertensive episode. Will need outpatient cardiology follow-up to rule out underlying ischemia. 8. Chronic back pain with peripheral neuropathy- continue home meds. DVT prophy: Heparin subcutaneous Prognosis guarded.. Physical therapy recommending subacute rehabilitation; awaiting placement. Will place under [facility]. VS,Fishbone, I+O VS, Fishbone, I+O Laboratory Tests 06/23/17 05:51 Red Blood Count 4.13, Mean Corpuscular Volume 95.9, Mean Corpuscular Hemoglobin 31.7, Mean Corpuscular Hemoglobin Concent 33.1, Red Cell Distribution Width 12.3 , Calcium Level 9.3, Aspartate Amino Transf (AST/SGOT) 39 H, Alanine Aminotransferase (ALT/SGPT) 53, Alkaline Phosphatase 121 H, Total Bilirubin 0.3 , Total Protein 6.8, Albumin 2.9 L Vital Signs Date Time Temp Pulse Resp B/P (MAP) Pulse Ox O2 Delivery O2 Flow Rate FiO2 06/23/17 09:27 152/76 06/23/17 09:26 86 06/23/17 08:01 98.2 18 96 Room Air SIMONE NARVAEZ MD Jun 23, 2017 12:06
[2017-06-23 14:00] VITALS: BP 156/72
[2017-06-23] MEDS: DOCUSATE SODIUM 100 MG CAP PO SCH (21:31)
[2017-06-23] MEDS: OPTHALMIC OU SCH (21:33)
[2017-06-23] MEDS: LUMIGAN 0.01% OU SCH (21:33)
[2017-06-23] MEDS: BETAXOLOL 0.25% OU SCH (21:33)
[2017-06-23 22:00] VITALS: BP 180/82
[2017-06-23] MEDS ORDERED: PREPARATION H OINTMENT (HEMORRHOID) TOP PRN (22:45)
[2017-06-24] MEDS: SLF 3 ML SYR IV SCH (05:10)
[2017-06-24 05:48] VITALS: BP 142/80
[2017-06-24] MEDS: HumaLOG INSULIN (NovoLOG) PER UNIT SC SCH ×2 (07:50→09:07)
[2017-06-24] MEDS: prednisoLONE ACET 1% OPHTH SUSP 5ML OU SCH (09:00)
[2017-06-24] MEDS ORDERED: AMLO10TA2 PO (09:06)
[2017-06-24] MEDS ORDERED: CLOT7CR TOP (09:06)
[2017-06-24] MEDS ORDERED: LOSA50TA20 PO (09:06)
[2017-06-24] MEDS: LEVEMIR (INSULIN DETEMIR) 1 UNITS/0.01ML SC SCH (09:06)
[2017-06-24] MEDS ORDERED: SENN1TAB2 PO (09:06)
[2017-06-24] MEDS: amLODIPine 10 MG TAB PO SCH (09:07)
[2017-06-24] MEDS: POTASSIUM CHLORIDE 10 MEQ SR TABLET PO SCH (09:07)
[2017-06-24] MEDS: DULoxetine 30 MG CAP (CYMBALTA) PO SCH (09:07)
[2017-06-24] MEDS: SENOKOT S TAB PO SCH (09:08)
[2017-06-24] MEDS: LOSARTAN 50 MG TAB PO SCH (09:08)
[2017-06-24] MEDS: CLOTRIMAZOLE 1% VAG CR 45 GM TOP SCH (09:08)
[2017-06-24] MEDS: HEPARIN SOD (PORCINE) 5000 UNITS/ML VIAL SQ SCH (09:09)
--- NOTE | 2017-06-24 12:15 | DSES ---
DATE OF ADMISSION: 06/16/2017 DATE OF DISCHARGE: 06/24/2017 No specialists involved in her care. No complications during her stay. No procedures performed during her stay. DISCHARGE DIAGNOSES: Hypertensive urgency. Frequent falls. History of asthma. Diabetes. Glaucoma. Chronic kidney disease stage III. Elevated troponin. Chronic back pain with peripheral neuropathy. The following is a summary of her hospitalization: This is an 86-year-old who presented with a fall. She was found to be hypertensive with a blood pressure in the 250s, was admitted to the hospitalist's service. Apparently, there had been some difficulty with administering her medications at home, and she has history of use of clonidine, perhaps was suffering from rebound hypertension. Blood pressure was relatively easily controlled during her stay. She did have an echocardiogram during her stay which showed grade 1 diastolic dysfunction. She was seen by physical therapy and thought appropriate for subacute rehabilitation. Today, she is ready for subacute rehabilitation. No issues noted overnight. Temperature 97.7, pulse 89, respiratory rate 18, blood pressure 142/80, 95% on room air. Awake and appropriately interactive. There are no labs to review this morning. DISCHARGE INSTRUCTIONS INCLUDE THE FOLLOWING: Followup with Dr. Reed in 1 week. Activity and diet as tolerated. Continue with Norvasc 10 mg by mouth daily, clotrimazole topically twice a day, losartan 100 by mouth daily, Senokot-S two tablets by mouth twice daily, [place] 7.5 one tablet every hour as needed for pain, Betoptic-S one drop each eye daily at bedtime, [place] one drop each eye daily at bedtime, Dulcolax 5 mg one daily as needed for constipation, Colace 100 mg by mouth daily at bedtime, duloxetine 30 mg by mouth daily, glimepiride 2 mg by mouth daily, Lantus 55 units subcutaneously daily at bedtime, Xopenex inhaled four times daily as needed for shortness of breath, lorazepam 1 mg by mouth three times a day as needed for anxiety, Lotemax 0.5% one drop each eye daily, Januvia 100 mg by mouth daily. Discontinue clonidine. Discontinue diltiazem. Discontinue hydrochlorothiazide. Discontinue previous dose of losartan. Discontinue KCl. Please note, patient did have minimally elevated troponin associated with elevated blood pressure during her stay. May benefit from outpatient stress test in the outpatient setting.
== END 2017-06-24 10:45 | DRG 305 ==
LOC: EDBD 18:14 → M ED 18:14 → M ED INP 23:15 → M PCU 06-17 01:30 → M MSPAV 06-20 17:18
PROVIDERS: ADMIT Hospitalist; ATTEND Internal Medicine
DX: I16.0 Hypertensive urgency (principal); I12.9 Hypertensive chronic kidney disease with stage 1 through stage 4 chronic kidney disease, or unspecified chronic kidney disease; E11.9 Type 2 diabetes mellitus without complications; J45.909 Unspecified asthma, uncomplicated; F41.9 Anxiety disorder, unspecified; R29.6 Repeated falls; G62.9 Polyneuropathy, unspecified; N18.3 Chronic kidney disease, stage 3 (moderate); M54.9 Dorsalgia, unspecified; Z88.1 Allergy status to other antibiotic agents; Z88.0 Allergy status to penicillin; Z88.2 Allergy status to sulfonamides; Z96.643 Presence of artificial hip joint, bilateral; Z79.4 Long term (current) use of insulin; Z79.891 Long term (current) use of opiate analgesic; Z79.899 Other long term (current) drug therapy

== ENCOUNTER → 2017-07-01 | Outpatient (REF) | payer BC, MEDICARE ==
[~2017-07-01] MED LIST changes: +AMLO10TA2 PO; +CLOT7CR TOP; +DULO1CAP2 PO; +LORA1TAB12 PO; +SENN1TAB2 PO
[2017-07-01 12:21] LABS: MEAN CORPUSCULAR HEMOGLOBIN 32.2 pg (27.0-33.0); MEAN CORPUSCULAR HGB CONC 32.9 g/dl (32.0-36.5); MEAN CORPUSCULAR VOLUME 97.8 fl (80.0-96.0); RED CELL DISTRIBUTION WIDTH 12.7 % (11.5-14.5); WHITE BLOOD COUNT 10.7 10^3/uL (4.0-10.0)
[2017-07-01 14:48] LABS: CALCIUM LEVEL 9.5 MG/DL (8.8-10.2); CREATININE FOR GFR 1.17 MG/DL (0.55-1.02); GLOMERULAR FILTRATION RATE 46.8 (>32); POTASSIUM SERUM 4.3 MEQ/L (3.5-5.1)
== END ==
DX: I10 Essential (primary) hypertension (principal)

== ENCOUNTER → 2017-07-08 | Outpatient (REF) ==
[2017-07-08 12:17] LABS: MEAN CORPUSCULAR HEMOGLOBIN 31.9 pg (27.0-33.0); MEAN CORPUSCULAR HGB CONC 32.7 g/dl (32.0-36.5); MEAN CORPUSCULAR VOLUME 97.4 fl (80.0-96.0); PLATELET COUNT, AUTOMATED 273 10^3/uL (150-450); RED CELL DISTRIBUTION WIDTH 12.7 % (11.5-14.5); WHITE BLOOD COUNT 10.6 10^3/uL (4.0-10.0)
[2017-07-08 12:45] LABS: CALCIUM LEVEL 9.6 MG/DL (8.8-10.2); CREATININE FOR GFR 0.98 MG/DL (0.55-1.02); GLOMERULAR FILTRATION RATE 57.4 (>32); POTASSIUM SERUM 4.6 MEQ/L (3.5-5.1)
== END ==
DX: E11.9 Type 2 diabetes mellitus without complications (principal); I10 Essential (primary) hypertension

== ENCOUNTER → 2017-09-03 | Outpatient (REF) ==
[2017-09-03 13:20] LABS: CREATININE FOR GFR 1.17 MG/DL (0.55-1.02); GLOMERULAR FILTRATION RATE 46.8 (>32); POTASSIUM SERUM 4.4 MEQ/L (3.5-5.1)
== END ==
DX: I10 Essential (primary) hypertension (principal)

== ENCOUNTER → 2017-10-03 | Outpatient (CLI) | payer MEDICARE, BC ==
[2017-10-03 18:41] LABS: BASO # 0.1 10^3/uL (0.0-0.2); BASO % 0.5 % (0.0-1.0); EOS # 0.5 10^3/uL (0.0-0.50); EOS % 4.2 % (0.0-3.0); HEMATOCRIT 37.7 % (36.0-47.0); HEMOGLOBIN 12.3 g/dl (12.0-16.0); IMMATURE GRANULOCYTE % 0.3 % (0-0); LYMPH # 3.9 10^3/uL (1.5-4.5); MEAN CORPUSCULAR HEMOGLOBIN 32.6 pg (27.0-33.0); MEAN CORPUSCULAR HGB CONC 32.6 g/dl (32.0-36.5); MONO # 0.7 10^3/uL (0.0-0.8); MONO % 6.3 % (0.0-5.0); NEUTROPHILS # 6.6 10^3/uL (1.8-7.7); NEUTROPHILS % 55.7 % (36.0-66.0); PLATELET COUNT, AUTOMATED 294 10^3/uL (150-450); RED BLOOD COUNT 3.77 10^6/uL (4.00-5.40); RED CELL DISTRIBUTION WIDTH 13.2 % (11.5-14.5); WHITE BLOOD COUNT 11.8 10^3/uL (4.0-10.0)
[2017-10-03 20:40] LABS: ESTIMATED AVERAGE GLUCOSE 143 MG/DL (60-110); HEMOGLOBIN A1c 6.6 %
[2017-10-03 20:57] LABS: ALBUMIN 3.6 GM/DL (3.2-5.2); ALBUMIN/GLOBULIN RATIO 1.03 (1.00-1.93); ALKALINE PHOSPHATASE 86 U/L (45-117); ALT/SGPT 25 U/L (12-78); ANION GAP 13 MEQ/L (8-16); AST/SGOT 24 U/L (7-37); BILIRUBIN,TOTAL 0.4 MG/DL (0.2-1.0); BLOOD UREA NITROGEN 19 MG/DL (7-18); CALCIUM LEVEL 10.1 MG/DL (8.8-10.2); CARBON DIOXIDE LEVEL 27 MEQ/L (21-32); CHLORIDE LEVEL 102 MEQ/L (98-107); CREATININE FOR GFR 1.03 MG/DL (0.55-1.02); GLOMERULAR FILTRATION RATE 54.2 (>32); GLUCOSE, FASTING 133 MG/DL (83-110); SODIUM LEVEL 142 MEQ/L (136-145); TOTAL PROTEIN 7.1 GM/DL (6.4-8.2)
== END ==
LOC: M SMT 14:21
DX: E11.42 Type 2 diabetes mellitus with diabetic polyneuropathy (principal); I10 Essential (primary) hypertension
CPT/HCPCS: 80053